=== PATIENT | male | born 1990 | race Two or more races ===

== ENCOUNTER 2020-09-20 11:56 | Emergency (ER) | payer OTHER ==
[~2020-09-20] VITALS: Ht 177.8 cm; Wt 97.5 kg
[2020-09-20 12:56] VITALS: BP 156/85
== END 2020-09-20 15:51 | disposition home or self-care (01) ==
LOC: ER 11:56
DX: U07.1 COVID-19 (principal); J20.8 Acute bronchitis due to other specified organisms
CPT/HCPCS: 71045